=== PATIENT | female | born 1995 | race Caucasian/White ===

== ENCOUNTER 2018-10-09 23:20 | Inpatient (IN) | payer OTHER, SELFPAY ==
[2018-10-09 22:43] VITALS: BMI 28.3
[2018-10-09 23:20] LABS: ROM Internal Control Test YES-OK TO RESULT pt. (Internal QC); ROM Patient Test POSITIVE (Negative)
[2018-10-09] MEDS: Lactated Ringers 1,000 ML 50 ML IV (23:55)
[2018-10-10 00:11] LABS: Absolute Lymphocyte Count 1.75 X10^3/uL (0.83-4.51); Absolute Neutrophil Count 9.5 X10^3/uL (2.0-7.7); Basophil# 0.02 X10^3/uL; Basophil% 0.2 % (0-1); Eosinophil# 0.06 X10^3/uL; Eosinophils% 0.5 % (0-5); Hematocrit 35.6 % (37-47); Hemoglobin 11.6 g/dL (12.0-15.0); Lymphocyte # 1.75 X10^3/ul (4.0); Mean Corp Hgb Conc 32.6 g/dL (32-36); Mean Corpuscular Hgb 30.4 pg (27.0-32.0); Mean Corpuscular Volume 93.2 fL (81-99); Mean Platelet Vol. 10.6 fl (6.2-12.0); NRBC Flagged by Analyzer 0 % (0-5); Neutrophil # 9.54 X10^3/uL (2.7-7.7); Neutrophil % 76.4 % (47-70); Platelet Count 185 K/mm3 (150-450); RBC Distribution Width SD 44.3 fl (35.1-43.9); Red Blood Count 3.82 M/mm3 (4.2-5.4); White Blood Count 12.5 K/mm3 (4.4-11.0)
[2018-10-10] MEDS: fentaNYL-bupivacaine (epidural) 100 ML BAG EPIDURAL ×2 (00:16→05:26)
[2018-10-10] MEDS: Ondansetron 4 MG/2 ML Vial IV (00:51)
[2018-10-10 01:11] LABS: AST(SGOT) 25 U/L (15-37); Alanine Aminotransfer ALT/SGPT 26 U/L (13-56); EST Glomerular Filtration Rate 94 mL/min (>60); Est Glom Filt Rate - Afr Amer 114 mL/min (>60); Estimated Creatinine Clearance 106.36 ml/min; Uric Acid 4.8 mg/dL (2.6-6.0)
[2018-10-10 01:17] LABS: International Normalized Ratio 0.9; Prothrombin Time (Protime)PT. 12.4 SECONDS (11.7-14.9)
[2018-10-10] MEDS: Lactated Ringers 1,000 ML 50 ML IV ×2 (01:34→04:27)
--- NOTE | 2018-10-10 02:07 | PCM.HP.OB ---
History Date of Admission: 10/10/18 Final JASON: 10/09/18 Final JASON Source: US <20 weeks Gestational age: 40 Weeks and 1 Days History of this : This is a 23 year-old, 1 para 0 at 40-1/7 weeks gestation admitted for spontaneous rupture of membranes in labor. Rupture with clear fluid starting approximately 4:30 PM on 10/09/2018. She started having contractions after and that gotten progressively more intense. Her has been complicated today by tobacco use in the first trimester and she quit she is a group B strep carrier. She has a history of anxiety. She had nausea and vomiting in the first trimester. Allergies Penicillins Adverse Reaction (Verified 10/09/18 22:40) Nausea Home Medications: Home Medications Docusate Sodium [Colace] 100 mg PO DAILY PRN PRN 10/09/18 Famotidine [Pepcid] 20 mg PO DAILY PRN 10/09/18 Vits [Prenatabs FA ] 1 tab PO DAILY 10/09/18 Smoking Status: Former smoker Alcohol: None Number of Fetus(es): 1 History Past Pregnancies: Past Pregnancies Delivery Date Name GA/Weeks Outcome Route Weight Infant Gender Labor Length Anesthesia Delivery Location Provider FOB Expected Delivery Method: Spontaneous Vaginal Review of Systems Constitutional: Denies: Chills, Fever Cardiovascular: Denies: Chest Pain Respiratory: Denies: Cough Skin: Denies: Rash Physical Exam General: Alert, Cooperative, No apparent distress Lungs: Normal air movement Abdomen: Soft, Non-Distended, Gravid, Appropriate for Gestational Age Extremities:: No edema [employer]OR [employer]STRU[employer]: Normal external genitalia Estimated gestational size: Appropriate for gestational size Presentation: Cephalic Cervix Dilation (cm): 4 Station: -2 Effacement (%): 90 Assessment/Plan This is a 23 year-old, 1 para 0 at 40 1/7 weeks gestation with spontaneous rupture membranes and active labor. Patient admitted. Epidural for pain control per her request. Estimated weight is less than 4500 g clinically and pelvis clinically adequate to expect vaginal delivery. May use Pitocin augmentation if needed. Group B strep prophylaxis initiated
[2018-10-10] MEDS: Oxytocin 30 units/NS 500 ml 30 UNITS/500 ML IV.SOLN 334 UNITS IV (07:43)
--- NOTE | 2018-10-10 07:57 | PCM.OPRPT ---
Vaginal Delivery Maternal Presentation: Active Labor Amniotic Membrane Rupture Type: Spontaneous at home Amniotic Fluid Description: Clear, Moderate meconium - during second stage Final JASON: 10/09/18 Final JASON Source: [place] <20 weeks Gestational age: 40 Weeks and 1 Days Date of Procedure: 10/10/18 Pre-Operative Diagnosis: labor Post-Operative Diagnosis: same Surgery/ Procedure Performed: Spontaneous Vaginal Delivery Type of Anesthesia: Epidural Description of Procedure: A vigorous female infant was delivered BRENDA over intact perineum. A loose nuchal cord ?1 was easily reduced. The remainder the infant was delivered with maternal pushing and gentle traction only in less than 15 seconds. The Pitocin infusion was initiated for active management of the third stage. The cord was clamped and cut approximately 30 seconds. The infant was attended to by the waiting nursing staff. The placenta was delivered spontaneously and intact. The cervix and vagina were intact. The first-degree vaginal laceration was repaired with 3-0 Vicryl suture. sponge and needle counts were correct. A vaginal sweep was completed by me. Presentation: BRENDA Placental Delivery Description: Spontaneous Placenta Disposition: [facility] Cord Vessel Description: 3 Vessels Nuchal Cord Compression: Without compression Cord Entanglement: Around neck x 1, loose Drain: Salgado to straight drain Estimated Blood Loss: 300 A gender: Female (1 minute): 8 (5 minute): 9 Episiotomy Description: None Laceration: 1st degree - vaginal Medications given after delivery: IV Pitocin Complications: None
[2018-10-10] MEDS: Oxytocin 30 units/NS 500 ml 30 UNITS/500 ML IV.SOLN 167 UNITS IV (08:15)
[2018-10-10] MEDS: Naproxen 250 MG Tablet 500 MG PO (11:02)
[2018-10-10 12:18] VITALS: BP 111/58; PULSE 59; RESP 17; TEMP 36
[2018-10-10 16:30] VITALS: BP 131/70; PULSE 70; RESP 16; TEMP 36.6
[2018-10-10] MEDS: Acetaminophen 500 MG Tablet 1000 MG PO (17:56)
[2018-10-10 19:57] VITALS: BP 117/75; PULSE 64; RESP 16; TEMP 36.3
[2018-10-10 23:55] VITALS: BP 110/62; PULSE 59; RESP 16; TEMP 36.6
[2018-10-11 03:33] VITALS: BP 114/76; PULSE 58; RESP 16; TEMP 36.2
[2018-10-11] MEDS: Naproxen 250 MG Tablet 500 MG PO ×2 (03:44→20:23)
--- NOTE | 2018-10-11 06:41 | PCM.PN.OB ---
Subjective: pain well controlled, average lochia. - Physical Exam General: Alert, Cooperative, No apparent distress Vital Signs Temp Pulse Resp BP 97.1 F L 58 L 16 114/76 10/11/18 03:33 10/11/18 03:33 10/11/18 03:33 10/11/18 03:33 Oxygen Delivery Method Room Air Weight: 81.919 kg Body Mass Index (BMI) 28.3 Intake and Output for Last 24 Hours 10/09/18 10/10/18 10/11/18 23:59 23:59 23:59 Intake Total 2738 / 2738 Output Total 1900 / 1900 Balance 838 / 838 Medical Necessity - Tobacco Use Smoking Status: Former smoker Assessment/Plan PPD#1 s/p doing well likely d/c tomorrow
[2018-10-11 10:30] VITALS: BP 114/76; PULSE 70; RESP 18; TEMP 36.6
[2018-10-11 14:00] VITALS: BP 131/83; PULSE 85; RESP 18; TEMP 36.2
[2018-10-11 20:25] VITALS: BP 120/68; PULSE 63; RESP 18; TEMP 36.6
[2018-10-12 02:20] VITALS: BP 111/69; PULSE 55; RESP 16; TEMP 36.6
--- NOTE | 2018-10-12 07:14 | PCM.PN.OB ---
Subjective: She is seen at bedside. Patient is doing well. Good pain control. Mild lochia. Breast-feeding going well. Offers no other concerns. Ready for DC home - Physical Exam Abdomen: Soft, Non-Distended, - - fundus firm Extremities: No Calf Tenderness Vital Signs Temp Pulse Resp BP 97.9 F 55 L 16 111/69 10/12/18 02:20 10/12/18 02:20 10/12/18 02:20 10/12/18 02:20 Oxygen Delivery Method Room Air Weight: 81.919 kg Body Mass Index (BMI) 28.3 Intake and Output for Last 24 Hours 10/10/18 10/11/18 10/12/18 23:59 23:59 23:59 Intake Total 2738 / 2738 Output Total 1900 / 1900 Balance 838 / 838 Medical Necessity - Tobacco Use Smoking Status: Former smoker Assessment/Plan day #2, doing well Routine care DC home
--- NOTE | 2018-10-12 07:18 | DCINST_ITS ---
Discharge Diet: No Restrictions Discharge Activity: Return to Normal Activity, May not drive while taking narcotic pain medications., May Shower May resume sexual activity in: 4-6 weeks Additional Activity Instructions:: Nothing in the vagina for 4-6 weeks. You may return to work/school in 6 weeks. Call your doctor if your incision/area has: Continuous Slow Oozing, Sudden Increased Bleeding, Increased Pain/ Swelling, Increased Redness, Foul Smelling Discharge Additional Instructions: If you experience any of the following, contact your healthcare provider. * Bleeding that soaks a pad every hour for 2 hours * Fever 100.4 or higher * Unrelieved incision or abdominal pain * Swelling, redness, discharge or bleeding from your incision or episiotomy site * Your incision begins to separate * Problems urinating (including inability to urinate or burning while urinating). * Visual changes * Severe headache * Flu-like symptoms * Pain or redness in one of both of your breasts * Pain, warmth, tenderness or swelling in your legs, especially the calf area * Frequent nausea and vomiting * Symptoms of depression or anxiety If you experience any of the following, call 911 or go to the nearest Emergency Room. * Chest pain * Problems breathing * Seizure activity * Partial or complete paralysis of a body part, slurred speech, weakness or drooping of the face, or a sudden inability to walk or hold your balance Allergies/Adverse Reactions: Allergies Penicillins Adverse Reaction (Verified 10/09/18 22:40) Nausea Medications to take at Discharge Docusate Sodium [Colace] 100 mg PO DAILY PRN PRN 10/09/18 Famotidine [Pepcid] 20 mg PO DAILY PRN 10/09/18 Vits [Prenatabs FA ] 1 tab PO DAILY 10/09/18 Ibuprofen [Motrin] 600 mg PO Q6H PRN #60 tab 10/12/18 The following prescriptions were given: Ibuprofen [Motrin] 600 mg PO Q6H PRN #60 tab PRN Reason: Pain Transmission Status: Pending to [facility] Please Follow Up With: Nalini Srivastava MD - [phone] When: Call to make an appointment with your doctor's office in 1-2 and 6 weeks or as needed Primary Care Physician: Zoie Lott NP-C [Primary Care Provider] - Test Results: Test results from this visit will be discussed in further detail at your follow- up appointment, if applicable.
[2018-10-12] MEDS: Naproxen 250 MG Tablet 500 MG PO (08:46)
[2018-10-12 09:02] VITALS: BP 129/82; PULSE 76; RESP 20; TEMP 36.2; O2SAT 98
--- NOTE | 2018-10-18 15:48 | NURSING ---
No answer on follow up phone call, left voicemail
== END 2018-10-12 10:50 | disposition home or self-care (01) | DRG 807 ==
LOC: WPOUT 23:27
PROVIDERS: Admitting Provider Obstetrics & Gynecology; Family Provider Nurse Practitioner; PCP Nurse Practitioner; Visit Provider Obstetrics & Gynecology
DX: O99.824 Streptococcus B carrier state complicating childbirth (principal); O69.1XX0 Labor and delivery complicated by cord around neck, with compression, not applicable or unspecified; O70.0 First degree perineal laceration during delivery; Z87.891 Personal history of nicotine dependence; Z3A.40 40 weeks gestation of pregnancy; Z37.0 Single live birth
CPT/HCPCS: 59025; 59050; 82565; 84112; 84450; 84460; 84550; 85025; 85610; 85730; 86850; 86900; 99218; J7120; G0378; J2405

== ENCOUNTER → 2018-12-08 13:23 | Outpatient (CLI) | payer SELFPAY ==
[2018-12-08 13:23] VITALS: BMI 23.1
[2018-12-08 14:22] LABS: Cholesterol 126 mg/dL (200); High Density Lipoprotein 59 mg/dL; Triglycerides 70 mg/dL; Very Low Density Lipoprotein 14 mg/dL (5-40)
== END ==
LOC: MFPLAB 13:23 → MTLAB 13:24
PROVIDERS: Family Provider Nurse Practitioner; PCP Nurse Practitioner; Visit Provider Physician Assistant Surgical
DX: Z02.1 Encounter for pre-employment examination (principal)
CPT/HCPCS: 36415; 80061

== ENCOUNTER → 2020-07-23 14:20 | Outpatient (CLI) | payer OTHER, SELFPAY ==
[2018-12-08 13:23] VITALS: BMI 23.1
[2020-07-23 17:59] LABS: Erythrocyte Sedimentation Rate 2 mm/hr (0-30)
[2020-07-23 18:36] LABS: ALB/GLOB Ratio 1.1 RATIO (0.9-2.4); AST(SGOT) 29 U/L (15-37); Alanine Aminotransfer ALT/SGPT 53 U/L (13-56); Albumin, Serum 3.7 g/dL (3.2-5.0); Alkaline Phosphatase 91 U/L (45-117); Anion Gap 4 (5-15); BUN 11 mg/dL (7-18); BUN/Creat Ratio 13.3 RATIO (10-20); CRP < 2.90 mg/L (0.0-3.0); Calcium,Total 8.4 mg/dL (8.5-10.1); Chloride 108 mmol/L (98-107); Creatinine, Serum 0.82 mg/dL (0.55-1.02); EST Glomerular Filtration Rate 89 mL/min (>60); Est Glom Filt Rate - Afr Amer 108 mL/min (>60); Globulin 3.5 g/dL (2.2-4.2); Glucose 83 mg/dL (74-106); Potassium 3.7 mmol/L (3.5-5.1); Protein, Total 7.2 g/dL (6.4-8.2); Sodium Level 141 mmol/L (136-145); T4 Free Direct 1.07 ng/dL (0.76-1.46); Thyroid Stim Hormone (TSH) 1.69 uIU/mL (0.358-3.74)
== END ==
PROVIDERS: PCP Nurse Practitioner; Referring Provider Family Medicine; Visit Provider Family Medicine
DX: I73.00 Raynaud's syndrome without gangrene (principal); M13.0 Polyarthritis, unspecified; R63.4 Abnormal weight loss
CPT/HCPCS: 36415; 80053; 84439; 84443; 85652; 86038; 86140